=== PATIENT | female | born 1965 | race Caucasian/White ===

== ENCOUNTER 2018-10-17 13:50 | Emergency (ER) | payer BC ==
[~2018-10-17] VITALS: Ht 149.9 cm; Wt 64.0 kg
[~2018-10-17 13:50] MED LIST: SUMA25TA3 PO
[2018-10-17 14:10] VITALS: Ht 149.9 cm; Wt 64.0 kg
[2018-10-17] MEDS ORDERED: ONDANSETRON (ODT) 4 MG TAB ODT STA (16:15)
[2018-10-17] MEDS ORDERED: KETOROLAC 30 MG INJ IM STA (16:15)
[2018-10-17] MEDS ORDERED: DIPHENHYDRAMINE 25 MG CAP PO ONE (16:30)
[2018-10-17 17:26] VITALS: BP 121/74; PULSE 77; RESP 16
--- NOTE | 2018-10-17 17:55 | ERD ---
ER Documentation Chief Complaint Chief Complaint headache with nausea and vomit x 1 day, hx of migraine HPI 53-year-old female presents with complaint of headache off and on with nausea x2 days. Pt has a history of migraine headaches, and states presentation similar to her previous episodes. She denies sudden onset, thunderclap, or worst headache of her life. Pt currently taking Excedrin with intermittent improvement. She denies vomiting, photophobia, blurred vision or changes in mental status. History of hypertension which is controlled per patient. No history of DM. ROS All systems reviewed and are negative except as per history of present illness. Medications Home Meds Active Scripts Sumatriptan Succinate* (Sumatriptan Succinate*) 25 Mg Tablet, 25 MG PO BID PRN for MIGRAINE HEADACHE, #14 TAB May repeat after 2 hours if needed; MAX 200 mg/24 hours Prov:DEBBIE MURPHY PA-C 10/17/18 Allergies Allergies: Coded Allergies: acetaminophen (Verified Allergy, Unknown, 10/17/18) aspirin (Verified Allergy, Unknown, 10/17/18) caffeine (Verified Allergy, Unknown, 10/17/18) PMhx/Soc Medical and Surgical Hx: pt denies Surgical Hx History of Surgery: No Anesthesia Reaction: No Hx Neurological Disorder: No Hx Respiratory Disorders: No Hx Cardiac Disorders: Yes (HYPERTENSION) Hx Psychiatric Problems: No Hx Miscellaneous Medical Probl: No Hx Alcohol Use: No Hx Substance Use: No Hx Tobacco Use: No Smoking Status: Never smoker FmHx Family History: No diabetes, No coronary disease, No other Physical Exam Vitals Vital Signs Date Temp Pulse Resp B/P (MAP) Pulse Ox O2 O2 Flow FiO2 Time Delivery Rate 10/17/18 98.3 77 16 121/74 100 Room Air 17:26 (90) 10/17/18 98.0 78 16 128/83 100 14:10 (98) Physical Exam GENERAL: Alert and coherent. Well appearing, non-toxic. No acute distress. HEAD: Normocephalic, atraumatic. EYES: EOMI. PERRL. No nystagmus. No conjunctival injection. No scleral icterus. ENT: Nasal passages patent. Moist mucous membranes. Uvula midline. NECK: Supple. Full range of motion. Trachea midline. No lymphadenopathy. No meningismus RESPIRATORY: CTAB. No wheezes, no rales, no rhonchi. CV: Regular rate and rhythm. No murmurs, rubs, or gallops. BACK: Full ROM. No CVA tenderness. EXTREMITIES: No deformity. No clubbing, cyanosis or edema. Equal pulses x 4. SKIN: Warm and dry. No obvious rashes, erythema, or petechiae. NEUROLOGIC: Alert and oriented x3. Appropriate speech, mood and affect. Face is symmetric. Speech is normal. CN II-XII intact. Moves all extremities equally. Ambulates with a strong, steady gait. Results 24 hrs Laboratory Tests Test 10/17/18 16:32 POC Beta HCG, Qualitative NEGATIVE Current Medications Medications Dose Sig/Tanisha Start Time Status Last (Trade) Ordered Route PRN Stop Time Admin Dose Reason Admin Ketorolac 30 mg ONCE STAT 10/17/18 DC 10/17/18 Tromethamine IM 16:15 16:29 (Toradol) 10/17/18 16:17 25 mg ONCE ONCE 10/17/18 DC 10/17/18 Diphenhydrami PO 16:30 16:24 ne HCl 10/17/18 16:31 (Benadryl) Ondansetron 8 mg ONCE STAT 10/17/18 DC 10/17/18 HCl (Zofran ODT 16:15 16:24 Odt) 10/17/18 16:17 Procedures/MDM MDM: This is an otherwise healthy 53-year-old female with hx of migraine headaches presenting with complaint of migraine headache x2 days. There are no neurologic findings on exam and no evidence of any neurologic deficits on exam. There are no meningismal signs on physical exam. Given history and exam, I felt that spinal fluid analysis was not indicated to further evaluate for subarachnoid hemorrhage or aneurysm. The patient denies this being the worst headache of her life or a sudden onset headache. I do not find evidence of likely bacterial, viral, or fungal [employer] infection such as meningitis or encephalitis given that the patient does not have significant fever, stiff neck, meningeal signs, or confusion. I do not find evidence of cerebral venous thrombosis such as localized, severe headache, encephalopathy (confusion, delirium), focal neurologic findings such as focal weakness with or visual symptoms, or seizures. I considered other causes such as temporal arteritis, pseudotumor cerebri, dissection, vasculitis, sinusitis, migraine, cluster headache, and migraine. I feel that further imaging would be very low yield and is not warranted at this time. Pt received Migraine cocktail consisting of toradol, benadryl, and zofran while in ED, and notes improvement in symptoms upon re-evaluation. Pt is aware that I feel that they are stable for observation at home now but that condition may change. I have instructed to return to the emergency room at any time and immediately should neurologic changes, altered mental status, increase in headache, persistent vomiting, or other concerns occur. Pt agrees with and understands the plan and all questions were answered prior to discharge. At this time patient is stable for discharge home with follow-up to PCP within the next 1 to 2 days for management of migraine headaches. I have discharged her with a prescription for Imitrex to use as needed for migraine headaches however I do recommend she follows up with her primary care provider for further management. Patient expressed verbal understanding and agreement to treatment plan all questions addressed and answered. Departure Diagnosis: Primary Impression: Migraine Migraine type: with aura Status migrainosus presence: without status migrainosus Intractability: intractable Qualified Codes: G43.119 - Migraine with aura, intractable, without status migrainosus Condition: Stable Patient Instructions: Migraine Headache: Stages and Treatment, Sumatriptan Succinate Oral tablet [facility] Usted se coello hecho un examen mdico de control que le indica que no est en jason condicin que requiera tratamiento urgente en el Departamento de Emergencia. Un estudio ms profundo y el tratamiento de bolaños condicin pueden esperar sin ningn riesgo hasta que usted sea atendida/o en el consultorio de bolaños mdico o jason clnica. Es responsabilidad suya arreglar jason liz para el seguimiento del faisal. MANEJO DE CONDICIONES NO URGENTES EN EL FUTURO 1) Si usted tiene un mdico de atencin primaria: Usted debera llamar a bolaños mdico de atencin primaria antes de venir al departamento de emergencia. Despus de las horas de consultorio, bolaños doctor o bolaños asociado/a est disponible por telfono. El mdico o enfermero de ramila en el servicio telefnico puede asesorarle por braulio medio para atender el problema, o faisal contrario se puede programar jason liz. 2) Si usted no tiene un mdico de atencin primaria: Llame al mdico o clnica de referencia que aparece abajo [place] las horas de consultorio para hacer jason liz para que le vean. CLINICAS: [facility] [phone] [facility] [phone] [facility] [phone] [place] [phone] [place] [phone] [facility]. [phone] DEBBIE CUMMINGS PA-C Oct 17, 2018 17:55
== END 2018-10-17 17:27 | disposition home or self-care (01) ==
LOC: FTE 13:50
DX: G43.119 Migraine with aura, intractable, without status migrainosus (principal); I10 Essential (primary) hypertension
CPT/HCPCS: 81025; 96372; 99284; J1885